=== PATIENT | male | born 1960 | race African-American/Black ===

== ENCOUNTER → 2018-03-29 07:50 | Outpatient (CLI) | payer OTHER, SELFPAY ==
--- NOTE | 2018-03-29 | DI.MRI.S_ITS ---
PROCEDURE: MR CERVICAL SPINE WO CON INDICATIONS: PAIN IN RIGHT ARM TECHNIQUE: Noncontrast sagittal T1 spin echo and T2 fast spin echo, sagittal STIR, foraminal oblique sagittal T2 fast spin echo, and axial gradient echo or T2 fast spin echo through the cervical spine. COMPARISON: [facility], RG, XR C-SPINE 4-6V, 01/13/2005, 13:42. [facility], MR, C-SPINE WITHOUT CONTRAST, 02/21/2012, 7:47. FINDINGS: Image quality: Excellent. Alignment and Curvature: There is mild reversal of the normal cervical lordosis, which is centered at C5-C6. Bone Marrow: Marrow demonstrates normal overall signal. Spinal Cord: Visualized spinal cord has normal size and signal. No cerebellar tonsillar herniation. Paraspinous Soft Tissues: No paravertebral masses. Prevertebral soft tissues are normal in thickness. C2-C3: Mild loss of disc height and disc signal are seen. Mild to moderate disc osteophyte complex is seen. Mild facet joint hypertrophy is seen. No significant neural foraminal or central canal narrowing are seen. When comparison is made with the prior examination, these findings are similar. C3-C4: The disc height is relatively well-preserved. A mild degree of generalized disc osteophyte complex is seen. Mild facet joint hypertrophy is seen. No significant neural foraminal narrowing is seen. Mild central canal narrowing is seen. When comparison is made with the prior examination, these findings are similar. C4-C5: The disc height and disk signal are well-preserved. Mild to moderate disc osteophyte complex is seen. There is moderate right-sided and mild to moderate left-sided facet hypertrophy seen. There is moderate to severe right-sided and minimal left-sided neural foraminal narrowing seen. Moderate central canal narrowing is seen, with associated mass effect upon the ventral spinal cord. These degenerative changes are progressed compared to 2012. C5-C6: Moderate loss of disc height is seen. Loss of disc signal is seen. Moderate to prominent disc osteophyte complex is seen, which is eccentric to the right. A mild central disc osteophyte protrusion is seen, as on series 5 image 32. Uncovertebral joint hypertrophy is seen at this level. Moderate facet joint hypertrophy is seen. There is moderate to severe bilateral neural foraminal narrowing seen, right worse than left. Moderate to severe central canal narrowing is seen, with associated mass effect upon the ventral spinal cord. These degenerative changes have progressed compared to the prior MRI. C6-C7: The disc height is relatively well-preserved. Moderate disc osteophyte complex is seen, which is eccentric to the left. There is a mild disc osteophyte protrusion seen within the left lateral recess, as on series 5 image 39. Mild to moderate facet hypertrophy is seen. There is at least moderate bilateral neural foraminal narrowing seen, left worse than right. Moderate central canal narrowing is seen, with mild mass effect upon the ventral spinal cord. These imaging findings are progressed compared to the prior study. C7-T1: The disc height and disk signal are well-preserved. A mild degree of generalized disc osteophyte complex is seen. Mild to moderate facet hypertrophy is seen. There is mild to moderate bilateral neural foraminal narrowing seen. No significant central canal narrowing is seen. These findings have progressed compared to 2012. IMPRESSION: Extensive cervical spine degenerative changes are seen, which are most prominent at the C5-C6 level. The degenerative changes have progressed compared to 2012. Dictated by: Onofre Park M.D. on 03/29/2018 at 8:23 Approved by: Onofre Park M.D. on 03/29/2018 at 8:32
== END ==
PROVIDERS: PCP Internal Medicine; Visit Provider Internal Medicine
DX: M50.322 Other cervical disc degeneration at C5-C6 level (principal); M48.02 Spinal stenosis, cervical region; M79.601 Pain in right arm
CPT/HCPCS: 72141

== ENCOUNTER → 2018-08-01 12:51 | Outpatient (CLI) | payer OTHER, SELFPAY | PROVIDERS: PCP Internal Medicine; Visit Provider Internal Medicine | DX: R29.898 Other symptoms and signs involving the musculoskeletal system (principal) | CPT/HCPCS: 95885; 95886; 95909 ==

== ENCOUNTER → 2018-10-11 07:59 | Outpatient (CLI) | payer OTHER, SELFPAY ==
--- NOTE | 2018-10-11 | DI.MRI.S_ITS ---
PROCEDURE: MR SHOULDER RT WO CON INDICATIONS: Pain in right shoulder TECHNIQUE: Noncontrast oblique coronal T2 fast spin echo with fat saturation, oblique sagittal T1 spin echo and T2 fast spin echo with fat saturation, axial T1 spin echo and T2 fast spin echo with fat saturation through the shoulder. COMPARISON: None. FINDINGS: Image quality: Diagnostic. Rotator cuff: No definite full-thickness tear the rotator cuff is present. There is moderate grade partial-thickness tearing identified along the articular surface of the distal supraspinatus tendon, posteriorly with associated tendinopathy. Other partial-thickness tearing and tendinopathy of the infraspinatus tendon is present. The subscapularis tendon demonstrates mild tendinopathy. The teres minor tendon is intact. There is no significant atrophy of the rotator cuff muscles. Bones and bursae: No acute fracture, dislocation, or suspicious osseous lesion is identified involving the osseous structures of the right shoulder. Mild to moderate degenerative changes of the glenohumeral joint are present. There are severe degenerative changes of the ventricular joint. No significant joint effusion is identified. A small amount of fluid is contained within the subacromial subdeltoid bursa. Capsule and soft tissues: Evaluation of the labrum and the glenohumeral ligaments is difficult without intra-articular contrast. However, there likely is tearing along the posterosuperior margin of the labrum. The long head of the biceps tendon is normally positioned within the bicipital groove and is intact. There is slight increased signal identified involving the intra-articular portion of this tendon. No acute injuries are suspected involving the glenohumeral ligaments. IMPRESSION: 1. Low to moderate grade partial-thickness tearing of the distal supraspinatus and infraspinatus tendons is most pronounced involving the posterior distal supraspinatus tendon. There is corresponding tendinopathy. 2. Subscapularis tendinopathy. 3. Probable small tear of the posterosuperior labrum. 4. Mild tendinopathy involving the intra-articular portion of the biceps tendon. 5. Mild to moderate degenerative changes of the glenohumeral joint. 6. Severe degenerative changes of the acromioclavicular joint. 7. Fluid within the subacromial subdeltoid bursa may represent bursitis. Please correlate clinically. Dictated by: Neo Lopez M.D. on 10/11/2018 at 8:38 Approved by: Neo Lopez M.D. on 10/11/2018 at 9:24
== END ==
PROVIDERS: PCP Internal Medicine; Visit Provider Internal Medicine
DX: M25.511 Pain in right shoulder (principal); M75.111 Incomplete rotator cuff tear or rupture of right shoulder, not specified as traumatic
CPT/HCPCS: 73221

== ENCOUNTER → 2019-09-10 16:11 | Outpatient (CLI) | payer OTHER, SELFPAY ==
--- NOTE | 2019-09-10 | DI.MRI.S_ITS ---
PROCEDURE: MR ANGIO HEAD WO CON INDICATIONS: RIGHT DIAMOND CLEAVER Aneurysm TECHNIQUE: Noncontrast axial 3-D [id number] MR angiogram, with 3-dimensional maximum intensity projection (MIP) reformats of the internal carotid arteries and posterior circulation then performed. COMPARISON: [facility], MR, ANGIOGRAM HEAD WITHOUT CONTRAS, 10/21/2010, 18:10. [facility], MR, BRAIN WITH AND WITHOUT CONTRAS, 10/21/2010, 18:30. [facility], MR, ANGIO HEAD WITHOUT CONTRAST, 03/20/2012, 9:16. [facility], MR, MR ANGIO NECK W CON, 09/10/2019, 16:20. [facility], MR, ANGIO HEAD WITHOUT CONTRAST, 03/30/2015, 7:36. FINDINGS: Image quality: Excellent. Anterior circulation: Intracranial internal carotid arteries demonstrate normal size and intraluminal flow signal. The flow within the paired anterior cerebral arteries is normal and symmetric. The flow within the middle cerebral arteries is normal and symmetric. The anterior communicating artery is seen. No stenoses, occlusions, or aneurysms. Posterior circulation: The right vertebral artery is dominant to the left. Only a small portion of the left vertebral artery joins with the right vertebral artery to form the normal appearing basilar artery. The distal left vertebral artery largely terminates in a left posterior inferior cerebellar artery. There is a prominent right posterior communicating artery seen, with an accompanying diminutive right P1 segment. This is attributed to a type origin of the right posterior cerebral artery, which is considered to be a normal developmental variant of typically no clinical consequence. At the origin of the right posterior communicating artery, there is prominence seen that measures approximately 2 mm and is not significantly changed compared to prior studies. At the tip of the prominent origin, the normal appearing posterior communicating artery emerges. The flow within the posterior cerebral arteries is normal and symmetric. IMPRESSION: There is a stable appearance of a prominent origin of the right posterior communicating artery. This is attributed to an infundibulum and not to a true aneurysm. No significant change compared to the prior examinations. Incidental note is made of: type origin of the right posterior cerebral artery. Dictated by: Onofre Park M.D. on 09/10/2019 at 16:36 Approved by: Onofre Park M.D. on 09/10/2019 at 16:42
--- NOTE | 2019-09-10 | DI.MRI.S_ITS ---
PROCEDURE: MR ANGIO NECK W CON INDICATIONS: RIGHT CEMENT MASON ANEURYSM TECHNIQUE: Axial and sagittal TruFISP through the neck. Coronal dynamic MRA after the administration of contrast in the arterial and venous phases, with rotating 3-dimensional maximum intensity projection (MIP) reformats constructed from subtraction images. COMPARISON: [facility], MR, MR CERVICAL SPINE WO CON, 03/29/2018, 8:12. [facility], MR, MR ANGIO HEAD WO CON, 09/10/2019, 16:20. FINDINGS: Image quality: There is venous contamination artifact. Carotid system: Great vessels demonstrate a conventional anatomy as they arise from the aortic arch. The origins of the common carotid arteries appear normal. The calibers and courses of the common carotid arteries are likewise normal. The carotid bifurcations appear normal bilaterally. The internal carotid arteries are widely patent up to the [place]. Posterior circulation: The origins of the vertebral arteries are unremarkable. The right vertebral artery is dominant to the left vertebral artery. The distal vertebral arteries join to form a normal appearing basilar artery. Miscellaneous: Subclavian arteries are patent throughout. Pre-contrast images through the neck demonstrate no soft tissue abnormalities. IMPRESSION: Within the arteries of the neck, no hemodynamically significant stenosis can be seen. Any quantitative measurements of stenosis were performed using NASCET criteria. Dictated by: Onofre Park M.D. on 09/10/2019 at 16:42 Approved by: Onofre Park M.D. on 09/10/2019 at 16:43
== END ==
PROVIDERS: PCP Internal Medicine; Referring Provider Internal Medicine; Visit Provider Internal Medicine
DX: I72.8 Aneurysm of other specified arteries (principal)
CPT/HCPCS: 70544; 70548; A9579

== ENCOUNTER 2020-07-31 14:54 | Emergency (ER) | payer OTHER, SELFPAY ==
--- NOTE | 2020-07-31 15:07 | ED_ITS ---
HPI - SOB/Dyspnea General Chief Complaint: Shortness of Breath/Dyspnea Stated Complaint: cough, problems breathing Time Seen by Provider: 07/31/20 14:57 Source: patient and family Mode of arrival: Ambulatory Limitations: no limitations History of Present Illness HPI Narrative: 60-year-old male nonsmoker with history of hypertension and chronic headache presents with a significant other and a chief complaint at [facility] a few days of increasing shortness of breath. He has had shortness of breath with exertion as well as lying flat and a dry and hacking cough. He denies any change in his headache nor blurred vision or trouble with speech. He has had no fever, chills or production of yellowish or blood tinged sputum. He denies any recent travel, history of blood clots or cancer. He denies abdominal pain, na usea, vomiting or diarrhea. He was recently seen by his primary care provider and found to have elevated blood pressure and had a 2nd antihypertensive added to his regimen. He has taken his medications as directed and denies any dietary change or other medication change MD Complaint: shortness of breath and cough Onset (ago): day(s) Severity: moderate Consistency/Duration: constant Relieving factors: upright position Exacerbating factors: lying flat and exertion Associated symptoms: cough Treatment prior to arrival: none Related Data Home oxygen amount: none Home Medications Medication Instructions Recorded Confirmed atorvastatin [Lipitor] 10 mg PO HS #0 10/23/12 07/25/20 Previous Rx's Medication Instructions Recorded prednisone See Rx Instructions .ROUTE 07/31/20 .COMPLEX #30 tab Allergies Allergy/AdvReac Type Severity Reaction Status Date / Time No Known Drug Allergies Allergy Verified 07/31/20 15:40 Review of Systems Constitutional Constitutional: Denies chills, Denies fatigue, Denies fever(s), Denies frequent falls, Denies lethargy and Denies weakness Eyes Eyes: Denies change in vision, Denies eye discharge, Denies irritation and Denies loss of vision ENT Ears, Nose, Mouth, and Throat: Denies change in voice, Denies dizziness, Denies neck pain, Denies sore throat and Denies throat swelling Cardiovascular Cardiovascular: Denies chest pain, Denies irregular heart rhythm, Denies lightheadedness, Denies palpitations, Reports dyspnea, Reports dyspnea on exertion and Denies orthopnea Respiratory Respiratory: Reports cough, Reports dyspnea, Reports dyspnea on exertion and Denies wheezing Gastrointestinal Gastrointestinal: Denies abdominal pain, Denies change in bowel habits, Denies diarrhea, Denies nausea and Denies vomiting Musculoskeletal Musculoskeletal: Denies neck pain and Denies numbness Integumentary/Breasts Skin/Breast: Denies pruritus, Denies erythema, Denies rash and Denies wounds Neurologic Neurologic: Denies behavioral changes, Denies confusion, Denies dizziness, Denies frequent falls, Denies loss of vision, Denies numbness and Denies weakness Psychiatric Psychiatric: Denies anxiety, Denies behavioral changes, Denies confusion, Denies depression, Denies homicidal ideation and Denies suicidal ideation Endocrine Endocrine: Denies fatigue, Denies flushing and Denies palpitations Hematologic/Lymphatic Hematologic/Lymphatic: Denies easy bruising Allergic/Immunologic Allergic/Immunologic: Denies urticaria, Denies throat swelling and Denies wheezing Patient History Medical History No active medical problems Social History Smoking Status: Never smoker Smoking Status: Never smoker alcohol intake frequency: 0-2 drinks per day Exam Narrative Exam Narrative: GENERAL: [60] year old patient appears stated age. Well- nourished, well-developed patient, in mild distress. 98% on RA, increased work of breathing HEAD: Atraumatic. Normocephalic. EYES: Pupils equal round and reactive. Extraocular motions intact. No scleral icterus. No injection or drainage. ENT: Nose without bleeding, purulent drainage. Throat without erythema, tonsillar hypertrophy or exudate. Airway patent. NECK: Trachea midline. Non tender CARDIOVASCULAR: Regular rate and rhythm without murmurs, gallops, or rubs. RESPIRATORY: Clear to auscultation. Breath sounds equal bilaterally. No wheezes, rales, or rhonchi. Tachypnea GASTROINTESTINAL: Abdomen soft, non-tender, nondistended. EXTREMITIES: No edema or joint tenderness. BACK: Nontender without deformity or crepitance. No flank tenderness. NEURO: AOx3. SKIN: No rash or erythema of visible areas Initial Vital Signs Initial Vital Signs: Vital Signs Temperature 98.0 F 07/31/20 15:14 Pulse Rate 57 L 07/31/20 15:14 Respiratory Rate 22 07/31/20 15:14 Blood Pressure 217/105 H 07/31/20 15:14 Pulse Oximetry 98 07/31/20 15:14 Course Course Course Narrative: Near complete resolution of symptoms after bronchodilators. Multiple diagnoses considered including heart failure, hypertensive emergency, myocardial infarction, PE, COVID and other. History, physical, response to medications, lab and imaging findings would suggest bronchospasm, perhaps due to dry air versus viral upper respiratory infection. Return precautions given and questions answered to his apparent satisfaction Orders Ordered: ED Orders 07/31/20 15:13 XR chest 1V Stat EKG-12 Lead Stat 07/31/20 15:18 Complete Blood Count AUTO DIFF Stat Comprehensive Metabolic Panel Stat D Dimer Stat Magnesium Stat NT-proBNP (BNP-Adult 18+) Stat Troponin & CK Cardiac Panel Stat 07/31/20 15:25 COVID19 Stat Discontinued Medications Albuterol (Albuterol Hfa Prepack) 1 box MISC SEEINSTR ONE Stop: 07/31/20 17:21 Last Admin: 07/31/20 17:24 Dose: 1 box Documented by: GURMEET Albuterol/Ipratropium (Albuterol/Ipratropium 3 Ml Ampul) 3 ml INH NOW ONE Stop: 07/31/20 17:00 Last Admin: 07/31/20 17:09 Dose: 3 ml Documented by: GURMEET Methylprednisolone (Methylprednisolone 125 Mg/2 Ml Vial) 125 mg IV NOW ONE Stop: 07/31/20 17:00 Last Admin: 07/31/20 17:35 Dose: 125 mg Documented by: CHAROANCE Vital Signs Vital signs: Vital Signs - 8 hr 07/31/20 15:14 07/31/20 15:45 07/31/20 16:10 Temperature 98.0 F Pulse Rate 57 L 57 L 57 L Respiratory Rate 22 26 H 24 Blood Pressure 217/105 H 185/89 H 166/96 H Pulse Oximetry 98 99 99 07/31/20 17:13 07/31/20 17:20 07/31/20 17:25 Temperature Pulse Rate 62 57 L Respiratory Rate 24 16 Blood Pressure 164/89 H Pulse Oximetry 99 100 99 MDM - SOB/Dyspnea Lab Data Result diagrams: 07/31/20 15:18 07/31/20 15:18 Labs: Lab Results 07/31/20 07/31/20 07/31/20 Range/Units 15:18 15:18 15:18 WBC 5.0 (4.5-11.0) X10^3/uL RBC 4.56 (4.5-5.9) X10^6/uL Hgb 14.9 (13.5-17.5) g/dL Hct 43.7 (41-53) % MCV 96.0 (80-100) fL MCH 32.8 (26-34) PG MCHC 34.1 (30-36) % RDW 13.2 (11.6-14.8) % Plt Count 279 (150-400) X10^3/uL Neut % (Auto) 38.1 L (50-75) % Lymph % (Auto) 37.2 (25-40) % [place] % (Auto) 12.3 (3-14) % Eos % (Auto) 11.7 H (2-4) % Baso % (Auto) 0.7 (0-2) % Neut # (Auto) 1900 (4747-2870) /uL Lymph # (Auto) 1900 (0800-2544) /uL [place] # (Auto) 600 (0-900) /uL Eos # (Auto) 600 H (0-450) /uL Baso # (Auto) 0 (0-100) /uL D-Dimer 223 (<230) ng/mL Sodium 137 (137-145) mmol/L Potassium 4.4 (3.4-5.1) mmol/L Chloride 103 (98-107) mmol/L Carbon Dioxide 29 (22-32) mmol/L BUN 18 (9-20) mg/dL Creatinine 0.99 (0.66-1.25) mg/dL Estimated GFR > 60.0 (>60) mL/min BUN/Creatinine Ratio 18.2 (6-22) Glucose 98 (80-110) mg/dL Calcium 9.6 (8.4-10.2) mg/dL Magnesium 2.2 (1.6-2.3) mg/dL Total Bilirubin 0.6 (0.2-1.3) mg/dL AST 35 (17-59) IU/L ALT 40 (<50) IU/L Alkaline Phosphatase 52 (38-126) U/L Total Creatine Kinase 99 (55-170) U/L CK-MB (CK-2) TNP CK-MB (CK-2) Rel Index TNP Troponin I < 0.012 (0.01-0.034) ng/mL NT-Pro-B Natriuret Pep 29 (<125) pg/mL Total Protein 7.7 (6.3-8.2) g/dL Albumin 4.4 (3.5-5.0) g/dL Globulin 3.3 (1.7-4.1) g/dL Albumin/Globulin Ratio 1.3 (1.0-2.8) SARS-CoV-2 (PCR) (Negative) 07/31/20 Range/Units 15:25 WBC (4.5-11.0) X10^3/uL RBC (4.5-5.9) X10^6/uL Hgb (13.5-17.5) g/dL Hct (41-53) % MCV (80-100) fL MCH (26-34) PG MCHC (30-36) % RDW (11.6-14.8) % Plt Count (150-400) X10^3/uL Neut % (Auto) (50-75) % Lymph % (Auto) (25-40) % [place] % (Auto) (3-14) % Eos % (Auto) (2-4) % Baso % (Auto) (0-2) % Neut # (Auto) (1023-3002) /uL Lymph # (Auto) (8280-6793) /uL [place] # (Auto) (0-900) /uL Eos # (Auto) (0-450) /uL Baso # (Auto) (0-100) /uL D-Dimer (<230) ng/mL Sodium (137-145) mmol/L Potassium (3.4-5.1) mmol/L Chloride (98-107) mmol/L Carbon Dioxide (22-32) mmol/L BUN (9-20) mg/dL Creatinine (0.66-1.25) mg/dL Estimated GFR (>60) mL/min BUN/Creatinine Ratio (6-22) Glucose (80-110) mg/dL Calcium (8.4-10.2) mg/dL Magnesium (1.6-2.3) mg/dL Total Bilirubin (0.2-1.3) mg/dL AST (17-59) IU/L ALT (<50) IU/L Alkaline Phosphatase (38-126) U/L Total Creatine Kinase (55-170) U/L CK-MB (CK-2) CK-MB (CK-2) Rel Index Troponin I (0.01-0.034) ng/mL NT-Pro-B Natriuret Pep (<125) pg/mL Total Protein (6.3-8.2) g/dL Albumin (3.5-5.0) g/dL Globulin (1.7-4.1) g/dL Albumin/Globulin Ratio (1.0-2.8) SARS-CoV-2 (PCR) Negative (Negative) Imaging Data Chest x-ray: Radiologist's Impression: [address] [id number] ReportSigned Patient: Randy WhittakerMR#: [id number]: 1Acct:[id number]/Sex: 60 / MDate of Service: 07/31/20Loc: EDAccession Number: [id number] Procedure: XR chest 1V Ordering Provider: Papo Rivers D.O. PROCEDURE: XR CHEST 1V INDICATIONS: fall, trauma, preop TECHNIQUE: One view of the chest was acquired. COMPARISON: [facility], CHEST 2 VIEW, 04/13/2016, 12:56. FINDINGS: Surgical changes and devices: None. Lungs and pleura: Mildly low lung volumes are seen bilaterally. No acute airspace opacity is seen. No pleural effusions or pneumothorax. Mediastinum: Mediastinal contours appear normal. Heart size is normal. Bones and chest wall: No suspicious bony lesions. Overlying soft tissues appear unremarkable. IMPRESSION: No acute cardiopulmonary abnormality. Mildly low lung volumes. Dictated by: Brayden Gipson M.D. on 07/31/2020 at 15:33 Approved by: Brayden Gipson M.D. on 07/31/2020 at 15:34 Discharge Plan Departure Patient Disposition: Home Clinical Impression: Acute bronchospasm Instructions: Bronchospasm-Adult Activity Restrictions/Additional Instructions: *You have been diagnosed with [acute bronchospastic cough, no evidence of pneu monia, heart failure or COVID. This is possibly due to any of a number of other viral upper respiratory infections] *What to do: *Take medications as directed: You were given an Albuterol inhaler to take home tonight and [facility] taper. *Follow up with your primary care provider in 2-3 days, call for an appointment. Let them know you were seen in the Emergency Department and that we ask that you be seen in follow up *Return to ER if you should have any new, worsening or concerning symptoms, such as [increasing difficulty breathing, fever over 101 F, shaking chills, chest pain or other bothersome symptoms] Prescriptions: New prednisone 10 mg tablet See Rx Instructions .ROUTE .COMPLEX Qty: 30 RF: 0 No Action atorvastatin [Lipitor] 10 MG tablet 10 mg PO HS Qty: 0 RF: 0 Referrals: Dee Vazquez MD [Primary Care Provider] -
--- NOTE | 2020-07-31 15:13 | DI.RAD.S_ITS ---
PROCEDURE: XR CHEST 1V INDICATIONS: fall, trauma, preop TECHNIQUE: One view of the chest was acquired. COMPARISON: [facility], , CHEST 2 VIEW, 04/13/2016, 12:56. FINDINGS: Surgical changes and devices: None. Lungs and pleura: Mildly low lung volumes are seen bilaterally. No acute airspace opacity is seen. No pleural effusions or pneumothorax. Mediastinum: Mediastinal contours appear normal. Heart size is normal. Bones and chest wall: No suspicious bony lesions. Overlying soft tissues appear unremarkable. IMPRESSION: No acute cardiopulmonary abnormality. Mildly low lung volumes. Dictated by: Brayden Gipson M.D. on 07/31/2020 at 15:33 Approved by: Brayden Gipson M.D. on 07/31/2020 at 15:34
[2020-07-31 15:14] VITALS: BP 217/105; PULSE 57; RESP 22; TEMP 36.7; O2SAT 98; BMI 32.7
[2020-07-31 15:45] VITALS: BP 185/89; PULSE 57; RESP 26; O2SAT 99
[2020-07-31 15:55] LABS: Add Manual Diff / Slide Review NO; Basophils Absolute Auto 0 /uL (0-100); Basophils Percent Auto 0.7 % (0-2); Eosinophils Absolute Auto 600 /uL (0-450); Eosinophils Percent Auto 11.7 % (2-4); Hematocrit 43.7 % (41-53); Hemoglobin 14.9 g/dL (13.5-17.5); Lymphocytes Absolute Auto 1900 /uL (1100-4500); Lymphocytes Percent Auto 37.2 % (25-40); Mean Corpuscular HGB Conc 34.1 % (30-36); Mean Corpuscular Hemoglobin 32.8 PG (26-34); Monocytes Absolute Auto 600 /uL (0-900); Monocytes Percent Auto 12.3 % (3-14); Neutrophils Absolute Auto 1900 /uL (1500-7000); Neutrophils Percent Auto 38.1 % (50-75); Platelet Count 279 X10^3/uL (150-400); Red Blood Cell Count 4.56 X10^6/uL (4.5-5.9); Red Cell Distribution Width 13.2 % (11.6-14.8)
[2020-07-31 16:01] LABS: Alanine Aminotransferase 40 IU/L (<50); Albumin 4.4 g/dL (3.5-5.0); Albumin Globulin Ratio 1.3 (1.0-2.8); Alkaline Phosphatase 52 U/L (38-126); Aspartate Aminotransferase 35 IU/L (17-59); BUN Creatinine Ratio 18.2 (6-22); Bilirubin Total 0.6 mg/dL (0.2-1.3); Blood Urea Nitrogen 18 mg/dL (9-20); Calcium 9.6 mg/dL (8.4-10.2); Carbon Dioxide 29 mmol/L (22-32); Chloride 103 mmol/L (98-107); Creatine Kinase 99 U/L (55-170); Estimated Glomerular Filt Rate > 60.0 mL/min (>60); Globulin 3.3 g/dL (1.7-4.1); Glucose 98 mg/dL (80-110); HEMOLYSIS < 15 (0-50); Magnesium 2.2 mg/dL (1.6-2.3); Potassium 4.4 mmol/L (3.4-5.1); Sodium 137 mmol/L (137-145); Total Protein 7.7 g/dL (6.3-8.2)
[2020-07-31 16:09] LABS: COVID19 -Nasal RAPID Negative (Negative)
[2020-07-31 16:10] VITALS: BP 166/96; PULSE 57; RESP 24; O2SAT 99
[2020-07-31 16:13] LABS: NT-proBNP (BNP-Adult 18+) 29 pg/mL (<125); Troponin I < 0.012 ng/mL (0.01-0.034)
[2020-07-31 16:22] LABS: D Dimer 223 ng/mL (<230)
[2020-07-31] MEDS: ALBUTEROL/IPRATROPIUM 3 ML AMPUL INH (17:09)
[2020-07-31 17:13] VITALS: PULSE 62; RESP 24; O2SAT 99
[2020-07-31 17:20] VITALS: BP 164/89; PULSE 57; RESP 16; O2SAT 100
[2020-07-31] MEDS: ALBUTEROL HFA PREPACK 1 BOX MISC (17:24)
[2020-07-31 17:25] VITALS: O2SAT 99
[2020-07-31] MEDS: methylPREDNISolone 125 MG/2 ML VIAL IV (17:35)
== END 2020-07-31 17:46 | disposition home or self-care (01) ==
PROVIDERS: Emergency Provider Emergency Medicine; PCP Internal Medicine
DX: J98.01 Acute bronchospasm (principal); R05 Cough; I10 Essential (primary) hypertension; R51.9 Headache, unspecified; Z20.822 Contact with and (suspected) exposure to COVID-19
CPT/HCPCS: 36415; 71045; 80053; 82550; 83735; 83880; 84484; 85025; 85379; 87635; 93005; 93010; 94640; 96374; 99283; 99284; C9803; J2930

== ENCOUNTER → 2020-09-30 15:52 | Outpatient (CLI) | payer OTHER, SELFPAY ==
[2020-09-30] MEDS: COVID-19 VACC #1, MRNA(MOD) 100 MCG/0.5 ML VIAL IM (16:06)
== END ==
PROVIDERS: PCP Internal Medicine; Visit Provider Internal Medicine
DX: Z23 Encounter for immunization (principal)
CPT/HCPCS: 0011A; 91301

== ENCOUNTER → 2020-10-28 16:00 | Outpatient (CLI) | payer OTHER, SELFPAY ==
[2020-10-28] MEDS: COVID-19 VACC #2, MRNA(MOD) 100 MCG/0.5 ML VIAL IM (16:20)
== END ==
PROVIDERS: PCP Internal Medicine; Visit Provider Internal Medicine
DX: Z23 Encounter for immunization (principal)
CPT/HCPCS: 0012A; 91301

== ENCOUNTER → 2021-05-06 17:25 | Outpatient (CLI) | payer OTHER, SELFPAY ==
--- NOTE | 2021-05-06 17:28 | DI.MRI.S_ITS ---
PROCEDURE: MR CERVICAL SPINE WO CON INDICATIONS: PAIN IN RIGHT ARM TECHNIQUE: Noncontrast sagittal T1 spin echo and T2 fast spin echo, sagittal STIR, foraminal oblique sagittal T2 fast spin echo, and axial gradient echo or T2 fast spin echo through the cervical spine. COMPARISON: [facility], MR, C-SPINE WITHOUT CONTRAST, 02/21/2012, 7:47. [facility], MR, MR CERVICAL SPINE WO CON, 03/29/2018, 8:12. FINDINGS: Image quality: Excellent. Alignment and Curvature: There is mild reversal of cervical curvature at C5-6. There is trace retrolisthesis of C5 on C6, C6 on C7. Bone Marrow: Marrow demonstrates normal overall signal. Spinal Cord: Visualized spinal cord has normal size and signal. No cerebellar tonsillar herniation. Paraspinous Soft Tissues: No paravertebral masses. Prevertebral soft tissues are normal in thickness. Discs: Moderate to severe desiccation is present throughout the cervical spine most severe at C5-6. C2-C3: Mild disc bulge with mild spinal stenosis. Level low frontal noted will uncovertebral hypertrophy, minimally progressive. C3-C4: Mild disc bulge with mild spinal stenosis, unchanged. Minimal bilateral foraminal narrowing with uncovertebral hypertrophy, relatively unchanged. C4-C5: Mild disc bulge with moderate spinal stenosis. Moderate to severe right and moderate left foraminal narrowing with uncovertebral hypertrophy, slightly progressive on the right. C5-C6: Mild disc bulge with moderate to severe spinal stenosis with mild flattening of the ventral cord, unchanged. Severe right and moderate to severe left foraminal narrowing with uncovertebral hypertrophy, unchanged. C6-C7: Mild disc bulge with moderate spinal stenosis with mild flattening of the anterior cord, unchanged. Superimposed protrusion is noted in the posterior left paracentral location causing compromise of the left lateral recess, unchanged. Moderate to severe bilateral foraminal narrowing, left greater than right, stable compared to prior exam. Uncovertebral hypertrophy is present. C7-T1: Mild disc bulge without spinal stenosis. Ieih-iv-ljqxclew bilateral foraminal narrowing, left greater than right with uncovertebral hypertrophy. No interval change. IMPRESSION: 1. Multilevel degenerative changes as above with areas of minimal interval progression as noted. 2. Multilevel spinal stenosis most severe at C5-6 secondary to reversal of curvature as well as disc bulge. 3. Multilevel foraminal narrowing most severe at C5-6 secondary to uncovertebral arthropathy. Dictated by: Joann Chambers M.D. on 05/09/2021 at 8:48 Approved by: Joann Chambers M.D. on 05/09/2021 at 9:01
== END ==
PROVIDERS: PCP Internal Medicine; Referring Provider Internal Medicine; Visit Provider Internal Medicine
DX: M48.02 Spinal stenosis, cervical region (principal); M47.22 Other spondylosis with radiculopathy, cervical region; M50.11 Cervical disc disorder with radiculopathy, high cervical region; M79.601 Pain in right arm
CPT/HCPCS: 72141

== ENCOUNTER → 2021-09-05 15:11 | Outpatient (CLI) | payer OTHER, SELFPAY ==
[2021-09-05 18:05] LABS: COVID19 -Nasal RAPID Negative (Negative)
== END ==
PROVIDERS: PCP Internal Medicine; Visit Provider Surgery
DX: Z01.812 Encounter for preprocedural laboratory examination (principal); Z20.822 Contact with and (suspected) exposure to COVID-19
CPT/HCPCS: 87635; C9803

== ENCOUNTER 2021-09-06 07:31 | Day surgery (SDC) | payer OTHER, SELFPAY ==
[2021-09-06 07:46] VITALS: BP 129/81; PULSE 57; RESP 18; TEMP 36.3; O2SAT 100
[2021-09-06] MEDS: LACTATED RINGERS 1,000 ML 200 ML IV (07:56)
--- NOTE | 2021-09-06 08:18 | P.HP_ITS ---
History of Present Illness History of Present Illness Date Patient Seen: 09/06/21 Time Patient Seen: 08:18 Chief complaint: SCREENING COLONOSCOPY Narrative: The patient presents for colorectal sreening. Previous examination 11 years ago normal. No personal or family history of colon cancer. On further history denies any recent gastrointestinal symptoms. No nausea, vomiting, abdominal pain, loss of appetite, unexplained weight loss, change in bowel habits, di arrhea, constipation, melena, hematochezia, or bright red blood per rectum. Patient History Medical History Elevated PSA Erectile dysfunction Hypertension Family & Social History Family History Father Hypertension Social History: household members spouse Tobacco & Substance use: Smoking Status Never smoker alcohol intake current alcohol intake frequency 0-2 drinks per day Substance Use Type does not use Meds Home Medications and Allergies Home Medications Medication Instructions Recorded Confirmed Type amlodipine 5 mg tablet 5 mg PO DAILY #90 tab 10/28/20 09/06/21 Rx brimonidine 0.15 % eye drops 1 drp EYE-BOTH BID #15 ml 10/28/20 09/06/21 Rx (Alphagan P) latanoprost 0.005 % eye drops 1 drp EYE-BOTH DAILY #2.5 ml 10/28/20 09/06/21 Rx losartan 50 mg tablet 75 mg PO DAILY #90 tab 10/28/20 09/06/21 Rx rosuvastatin 5 mg tablet (Crestor) 2.5 mg PO DAILY #90 tab 10/28/20 09/06/21 Rx timolol 0.25 % eye drops 1 drp EYE-BOTH DAILY #5 ml 10/28/20 09/06/21 Rx sildenafil 50 mg tablet 25 mg PO DAILY tab 06/07/21 09/06/21 History sildenafil 50 mg tablet 50 mg PO DAILY PRN #30 tab 07/28/21 09/06/21 Rx sodium,potassium,mag sulfates 17.5 See Rx Instructions PO .COMPLEX 08/30/21 09/06/21 Rx gram-3.13 gram-1.6 gram oral soln #354 ml (Suprep Bowel Prep Kit) Allergies Allergy/AdvReac Type Severity Reaction Status Date / Time No Known Drug Allergies Allergy Verified 09/06/21 07:42 Exam Vital Signs (past 8 hours): - 09/06/21 07:46 Temperature 97.4 F L Pulse Rate 57 L Respiratory Rate 18 Blood Pressure 129/81 Pulse Oximetry 100 Oxygen Delivery Method Room Air Narrative Exam Narrative: GENERAL: Adult male in no apparent distress HEENT: No scleral icterus CV: Regular rate, no peripheral edema LUNGS: No increased work of breathing. Patient speaks in full sentences without oxygen support. ABDOMEN: Soft, non-tender, non-distended NEURO: Nonfocal, normal strength throughout, normal gait. SKIN: Warm and dry Assessment & Plan Assessment & Plan narrative: The patient requires colorectal screening and colonoscopy is recommended. Technical details were discussed. Risks, benefits, alternatives explained. Risks including but not limited to myocardial infarction, aspiration, bleeding, pain, missed lesion, incomplete examination, need for further radiographic studies, colonic perforation, and need for major abdominal surgery were d iscussed. All questions were answered to their satisfaction, and they are in agreement with this plan. Time Spent With Patient Critical Care time: I spent a total of [] minutes of critical care time on this patient's care today; this time is exclusive of procedural time.
[2021-09-06] MEDS: MIDAZOLAM 5 MG/5 ML VIAL IV (08:45)
[2021-09-06] MEDS: fentaNYL 250 MCG/5 ML INJ IV (08:46)
[2021-09-06 08:48] VITALS: BP 131/79; PULSE 50; RESP 16; TEMP 36; O2SAT 100
[2021-09-06 08:52] VITALS: BP 129/82; PULSE 52; RESP 10; O2SAT 98
--- NOTE | 2021-09-06 08:53 | P.OP.COLON_ITS ---
Operative Date/Time/Diagnoses Date of procedure: 09/06/21 Time of procedure: 08:54 Pre-op diagnosis: screening Post-op diagnosis: same Procedure & Clinicians Study performed: Colonoscopy Same procedure as scheduled: Yes Indications: Screening Surgeon: Jon Booker Procedure Notes Procedure in detail: Medications: Conscious sedation using 4mg IV midazolam and 150mcg IV of fentanyl The history and physical was performed/updated and the patient is ASA class is 2. The procedure was discussed in detail with the patient. Potential risks complications including infection, bleeding, missed diagnosis, perforation, need for surgery, and were explained. Their questions were answered and informed consent was obtained. Patient was brought to the procedure room and placed standard monitoring equipment. The patient's vital signs were monitored continuously throughout the entire procedure. Prior to starting time-out was performed. The patient was placed in the left lateral recumbent position. Procedural sedation was adminis tered. Examination began with a thorough inspection of the perianal area there was no evidence of fissures, fistulae, external hemorrhoids or cutaneous malignancy. The colonoscopy scope was then placed into the anal canal and was advanced to the cecum, which was identified by the ileocecal valve, the appendiceal orifice and the confluence of the taenia. The scope was then slowly withdrawn examining colon thoroughly in all directions, irrigating it of any residual stool. FINDINGS 1. Normal healthy colon 2. Sigmoid diverticulosis 3. No masses or polyps The patient tolerated the procedure well. They will be discharged once criteria are met. The prep was of good/excellent quality. The withdrawl time was 6 minutes. The sedation time was 12 minutes. Specimen(s): none sent Complications: none Impression: Normal colonoscopy Post-procedure Recommendations: Colonoscopy in 10 years Disposition: same day surgery
[2021-09-06 08:59] VITALS: BP 126/72; PULSE 52; RESP 16; O2SAT 99
[2021-09-06 09:01] VITALS: BP 144/96; PULSE 52; RESP 16; TEMP 36.6; O2SAT 100
--- NOTE | 2021-09-06 09:15 | SUR.PHASEI ---
\09/06/21 0900- Patient more awake and alert.vss. abdomen round/soft. no pain .tolerating fluids. expelling gas prn in large amts. Report to Aileen BURCH.
== END 2021-09-06 09:20 | disposition home or self-care (01) ==
PROVIDERS: PCP Internal Medicine; Referring Provider Surgery; Visit Provider Surgery
PROC: 0DJD8ZZ Inspection of Lower Intestinal Tract, Via Natural or Artificial Opening Endoscopic (ICD-10-PCS; CPT 45378; principal; 2021-09-06 08:30)
DX: Z12.11 Encounter for screening for malignant neoplasm of colon (principal); I10 Essential (primary) hypertension; K57.30 Diverticulosis of large intestine without perforation or abscess without bleeding
CPT/HCPCS: 45378; 82962; 99152; J2250; J3010

== ENCOUNTER → 2022-07-13 17:55 | Outpatient (CLI) | payer OTHER, SELFPAY ==
[2022-07-13 18:55] LABS: Influenza A - CEPHEID Flu A NEGATIVE (NEGATIVE); Influenza B - CEPHEID Flu B NEGATIVE (NEGATIVE); Respiratory Syncytial Virus POSITIVE (Negative)
[2022-07-13 18:56] LABS: COVID-19 CEPHEID 4-PLEX PCR Negative (Negative)
== END ==
PROVIDERS: PCP Internal Medicine; Visit Provider Nurse Practitioner Family
DX: J06.9 Acute upper respiratory infection, unspecified (principal); Z20.822 Contact with and (suspected) exposure to COVID-19
CPT/HCPCS: 0241U

== ENCOUNTER → 2022-07-24 12:24 | Outpatient (CLI) | payer OTHER, SELFPAY ==
--- NOTE | 2022-07-24 12:31 | DI.RAD.S_ITS ---
PROCEDURE: XR CHEST 2V INDICATIONS: Cough TECHNIQUE: 2 views of the chest were acquired. [facility], [facility], XR CHEST 1V, 07/31/2020, 15:21. FINDINGS: Surgical changes and devices: None. Lungs and pleura: Lungs are clear. No pleural effusions or pneumothorax. Mediastinum: Mediastinal contours are normal. Heart size is normal. Bones and chest wall: No suspicious bony abnormalities. Soft tissues appear unremarkable. IMPRESSION: No acute cardiopulmonary disease. Dictated by: Rosalva Morejon M.D. on 07/24/2022 at 15:35 Approved by: Rosalva Morejon M.D. on 07/24/2022 at 15:35
[2022-07-24 13:21] LABS: Influenza A - CEPHEID Flu A NEGATIVE (NEGATIVE); Influenza B - CEPHEID Flu B NEGATIVE (NEGATIVE); Respiratory Syncytial Virus Negative (Negative)
[2022-07-24 14:00] LABS: COVID-19 CEPHEID 4-PLEX PCR Negative (Negative)
== END ==
PROVIDERS: PCP Internal Medicine; Referring Provider Nurse Practitioner Family; Visit Provider Nurse Practitioner Family
DX: R05.1 Acute cough (principal)
CPT/HCPCS: 0241U; 71046

== ENCOUNTER → 2022-10-02 10:26 | Outpatient (CLI) | payer OTHER, SELFPAY ==
--- NOTE | 2022-10-02 10:28 | DI.RAD.S_ITS ---
PROCEDURE: XR KNEE RT 3V INDICATIONS: Right knee pain TECHNIQUE: 3 views of the knee were acquired. COMPARISON: None. FINDINGS: Bones: No fractures or dislocations. No suspicious bony lesions. Soft tissues: Prominent joint effusion. No suspicious soft tissue calcifications. IMPRESSION: Prominent effusion. No visualized acute fracture or dislocation. However, if clinical concern and/or pain persist, short interval imaging followup in 7-10 days is recommended, as occult injury cannot be definitively excluded. Dictated by: Joann Chambers M.D. on 10/02/2022 at 15:57 Approved by: Joann Chambers M.D. on 10/02/2022 at 15:58
== END ==
PROVIDERS: Referring Provider Nurse Practitioner Family; Visit Provider Nurse Practitioner Family
DX: M25.561 Pain in right knee (principal); M25.461 Effusion, right knee
CPT/HCPCS: 73562

== ENCOUNTER → 2022-11-14 14:54 | Outpatient (CLI) | payer OTHER, SELFPAY ==
--- NOTE | 2022-11-14 | DI.MRI.S_ITS ---
PROCEDURE: MR KNEE RT WO CON INDICATIONS: Pain in right knee TECHNIQUE: Noncontrast sagittal PD fast spin echo and T2 fast spin echo with fat saturation, sagittal 3-D FLASH with fat saturation; coronal T1 spin echo and PD fast spin echo with fat saturation, and axial PD fast spin echo with fat saturation through the knee. COMPARISON: [facility], CR, XR KNEE RT 3V, 10/02/2022, 10:48. FINDINGS: Image quality: Excellent. Menisci: Medial extrusion of the medial meniscus is present. There is linear oblique high T2 signal intensity traversing the middle and peripheral thirds of the anterior horn and body of the medial meniscus, demonstrating inferior articular surface extension. Truncation of the free edge of the lateral meniscal body is present, indicating radial tearing. Cruciate ligaments: The anterior and posterior cruciate ligaments appear intact. Medial structures: The medial collateral ligament appears intact. Visualized portions of the pes anserinus tendons appear normal. No abnormal bursal fluid. Lateral structures: The lateral collateral ligament, long and short heads of the biceps femoris tendon appear intact. The popliteus tendon appears normal. Iliotibial band appears normal. Anterior structures: The quadriceps and patellar tendons appear intact. Patellar alignment is normal. No femoral trochlear dysplasia or ventral trochlear prominence. No edema in the infrapatellar fat pad. Bones and cartilage: No bone marrow contusions or fractures. There is mild subchondral degenerative marrow edema within the mid and posterior weight-bearing aspects of the medial femoral condyle and medial tibial plateau. Mild subchondral degenerative marrow edema within the medial and lateral patellar facets. Mild tricompartmental periarticular osteophyte formation. Severe articular cartilage loss diffusely overlies the weight-bearing aspects of the medial femoral condyle and medial tibial plateau. Moderate articular cartilage loss overlies the medial and lateral patellar facets. Joint space: There is a moderate knee joint effusion and a small Faye's cyst. Normal appearing synovial plicae are incidentally noted. IMPRESSION: 1. Tricompartmental osteoarthritis with associated articular cartilage loss. 2. Knee joint effusion and Faye's cyst. 3. Medial meniscal tearing. Dictated by: Indra Ramires M.D. on 11/14/2022 at 16:41 Transcribed by: NUNU on 11/14/2022 at 16:43 Approved by: Indra Ramires M.D. on 11/14/2022 at 16:55
== END ==
PROVIDERS: Referring Provider Nurse Practitioner Family; Visit Provider Nurse Practitioner Family
DX: M25.561 Pain in right knee (principal); M17.11 Unilateral primary osteoarthritis, right knee; M25.461 Effusion, right knee; M71.21 Synovial cyst of popliteal space [Baker], right knee; S83.241A Other tear of medial meniscus, current injury, right knee, initial encounter
CPT/HCPCS: 73721

== ENCOUNTER → 2023-10-22 15:05 | Outpatient (CLI) | payer OTHER, SELFPAY ==
--- NOTE | 2023-10-22 15:06 | DI.MRI.S_ITS ---
PROCEDURE: MR PELIS WO/W CON INDICATIONS: Elevated PSA TECHNIQUE: Coronal HASTE, axial T1 FSE with fat saturation, 3-plane nonbreath-hold T2 FSE. After the administration of contrast, dynamic axial, delayed axial and coronal VIBE or 2-D FLASH with fat saturation through the pelvis. Diffusion weighted imaging and ADC was performed. COMPARISON: None. FINDINGS: Image quality: Diffusion weighted and dynamic contrast enhanced images are diagnostic. Prostate: Gland size is 4.9 x 4.2 x 4.3 cm; ellipsoid gland volume is 46 mL. Lesion 1: Location: Right medial peripheral zone at the apex, on axial series 4, image 16 and coronal series 5, image 16. Size: 0.8 x 0.3 cm. T2W signal: Hypointense. DWI signal: Markedly hyperintense. ADC signal: Markedly hypointense. Enhancement: Yes. Extracapsular extension: No. No neurovascular involvement. PI-RADS score: 4 Genitourinary system: Bladder wall thickness is normal. Distal ureters are non distended. Bowel and peritoneum: No pathologic free pelvic fluid. Inferior colon and small bowel loops are normal in caliber. Colonic diverticulosis without evidence of diverticulitis. Nodes and vessels: No pelvic or inguinal adenopathy by size criteria. Iliac vessels are normal in caliber. Soft tissues: No inguinal hernias. Bones: Marrow demonstrates normal overall signal, without lesions to suggest metastases. IMPRESSION: PI-RADS 4 lesion in the right medial peripheral zone of the apex. No extracapsular extension No pelvic lymphadenopathy by size criteria. No aggressive osseous abnormality. Dictated by: Aleks Fragoso M.D. on 10/22/2023 at 16:12 Approved by: Aleks Fragoso M.D. on 10/22/2023 at 16:17
== END ==
PROVIDERS: Referring Provider Specialist; Visit Provider Specialist
DX: N42.9 Disorder of prostate, unspecified (principal); K57.90 Diverticulosis of intestine, part unspecified, without perforation or abscess without bleeding; R33.9 Retention of urine, unspecified; R97.20 Elevated prostate specific antigen [PSA]; N42.89 Other specified disorders of prostate; R39.89 Other symptoms and signs involving the genitourinary system
CPT/HCPCS: 72197; A9579

== ENCOUNTER → 2024-03-06 15:13 | Outpatient (CLI) | payer OTHER, SELFPAY ==
--- NOTE | 2024-03-06 15:14 | DI.MRI.S_ITS ---
PROCEDURE: MR KNEE LT WO CON INDICATIONS: INTERNAL DERANGEMENT OF LEFT KNEE TECHNIQUE: Noncontrast sagittal PD fast spin echo and T2 fast spin echo with fat saturation, sagittal 3-D FLASH with fat saturation; coronal T1 spin echo and PD fast spin echo with fat saturation, and axial PD fast spin echo with fat saturation through the knee. COMPARISON: [facility], CR, XR KNEE 4+ VIEWS LEFT, 02/19/2024, 8:37. [facility], MR, MR KNEE RT WO CON, 11/14/2022, 15:02. FINDINGS: Image quality: Excellent. Menisci: Complex tear involving posterior horn of medial meniscus is seen extending to superior articulating surface. The lateral meniscus is intact. The meniscal root ligaments appear intact. Cruciate ligaments: The anterior cruciate ligament is mildly thickened with intrasubstance T2 hyperintense signal. The posterior cruciate ligament is intact.. Medial structures: The medial collateral ligament appears thickened with surrounding soft tissue edema. Visualized portions of the pes anserinus tendons appear normal. No abnormal bursal fluid. Lateral structures: The lateral collateral ligament is thickened at its femoral insertion. The long and short heads of the biceps femoris tendon appear intact. The popliteus tendon appears normal. Iliotibial band appears normal. Anterior structures: Distal quadriceps tendinosis at its superior patellar insertion is seen. Proximal patellar tendinosis is also seen. Mild soft tissue edema and fluid along anterior aspect of patella and patella tendon is seen. Patellar alignment is normal. Bones and cartilage: No bone marrow contusions or fractures. [id number] tricompartmental osteoarthritis and chondromalacia is seen more notably in medial femoral tibial compartment. Focal moderate to high-grade chondromalacia involving lateral facet of patella cartilage is also seen with underlying osteochondral injury. Joint space: There is small joint effusion. There is a popliteal cyst measures 2.5 x 2.4 x 4.9 cm in size. Normal appearing synovial plicae are incidentally noted. IMPRESSION: 1. Complex tear involving posterior horn of medial meniscus extending to superior articulating surface. The lateral meniscus is intact. 2. Degenerative changes noted involving ACL. No ACL rupture. The PCL is intact. 3. Low to moderate grade MCL sprain. Low-grade proximal LCL sprain. 4. Distal quadriceps tendinosis and proximal patellar tendinosis. Nonspecific mild soft tissue edema and fluid along anterior aspect of patella and patella tendon. 5. Otuq-ur-watifphq tricompartmental osteoarthritis and chondromalacia most notably in medial femoral tibial compartment. No fracture or dislocation. Focal moderate to high-grade chondromalacia involving lateral facet of patella cartilage with underlying osteochondral lesion. 6. Small joint effusion and a small popliteal cyst. No gross loose bodies. Dictated by: Crispin Li M.D. on 03/06/2024 at 21:55 Approved by: Crispin Li M.D. on 03/06/2024 at 22:08
== END ==
LOC: MRI 15:13
PROVIDERS: Referring Provider Orthopaedic Surgery Foot and Ankle Surgery; Visit Provider Orthopaedic Surgery Foot and Ankle Surgery
DX: S83.232A Complex tear of medial meniscus, current injury, left knee, initial encounter (principal); S83.412A Sprain of medial collateral ligament of left knee, initial encounter; S83.422A Sprain of lateral collateral ligament of left knee, initial encounter; M17.12 Unilateral primary osteoarthritis, left knee; M23.92 Unspecified internal derangement of left knee; M22.42 Chondromalacia patellae, left knee; M25.462 Effusion, left knee; M71.22 Synovial cyst of popliteal space [Baker], left knee
CPT/HCPCS: 73721

== ENCOUNTER → 2024-04-15 16:51 | Outpatient (CLI) | payer OTHER, SELFPAY ==
[2024-04-18 07:36] LABS: PSA, Total 9.2 ng/mL (0.0-4.0)
== END ==
PROVIDERS: PCP Nurse Practitioner Family; Referring Provider Specialist; Visit Provider Specialist
DX: N40.1 Benign prostatic hyperplasia with lower urinary tract symptoms (principal); N52.9 Male erectile dysfunction, unspecified; R97.20 Elevated prostate specific antigen [PSA]; R39.89 Other symptoms and signs involving the genitourinary system; R39.9 Unspecified symptoms and signs involving the genitourinary system; R33.9 Retention of urine, unspecified
CPT/HCPCS: 36415; 84153; 84154; 99214

== ENCOUNTER → 2025-04-03 11:33 | Outpatient (CLI) | payer OTHER, SELFPAY ==
[2025-04-03 12:52] LABS: Prostate Specific Antigen < 0.064 ng/mL (0.10-4.00)
== END ==
PROVIDERS: PCP Nurse Practitioner Family; Referring Provider Student in an Organized Health Care Education/Training Program; Visit Provider Student in an Organized Health Care Education/Training Program
DX: Z85.46 Personal history of malignant neoplasm of prostate (principal); Z98.890 Other specified postprocedural states
CPT/HCPCS: 36415; 84153

== ENCOUNTER → 2025-04-30 13:15 | Outpatient (CLI) | payer OTHER, SELFPAY ==
--- NOTE | 2025-04-30 13:23 | DI.US.S_ITS ---
PROCEDURE: US SOFT TISSUE HEAD AND NECK INDICATIONS: RT supraclavicular chest wall mass TECHNIQUE: Real-time scanning was performed of the neck region of interest, with image documentation. Color Doppler was also utilized. COMPARISON: (Prior imaging is not available for review from the archive at the time of this dictation.) FINDINGS: Scanning is performed at the area of clinical concern within the right shoulder. At this site, there is an ovoid lesion within the subcutaneous fat that measures 3.8 x 2.1 x 2.7 cm without abnormal vascularity. The echogenicity is similar to the surrounding normal subcutaneous fat. IMPRESSION: Presumed lipoma seen at the site of clinical concern. Dictated by: Onofre Park M.D. on 04/30/2025 at 18:49 Approved by: Onofre Park M.D. on 04/30/2025 at 18:54
== END ==
DX: R22.2 Localized swelling, mass and lump, trunk (principal)
CPT/HCPCS: 76536